=== PATIENT | female | born 1970 | race Caucasian/White ===

== ENCOUNTER → 2018-07-20 | Outpatient (CLI) | payer OTHER ==
[~2018-07-20] MED LIST: ADV250INH INH; ALLEGRA OTC PO; ALLEGRA PO; DARVOCET-N PO; GLUCOSAMINE; IBUP600T; Loperamide; PRED20TA PO; PROAIR INHALER INH; PROV90AE; VICO5TAB; [UNRECOGNIZED DRUG - OTHER]; mvi
--- NOTE | 2018-07-20 09:27 | REP ---
MR BRAIN WITHOUT CONTRAST: HISTORY: Dizziness. Scattered punctate areas of increased signal intensity on T2-weighted images are present in the subcortical white matter. This represents small vessel ischemic disease. There is no intraparenchymal hemorrhage, infarct, mass or midline shift. A 5 mm pineal cyst is present. The ventricular system is normal in appearance. There is no extracerebral collection. The sinuses are clear. IMPRESSION: Minimal small vessel ischemic disease. Electronically Signed by Raoul Amor MD 07/20/2018 09:35 A
== END ==
LOC: M RAD 08:20
PROVIDERS: ATTEND Specialist
DX: R42 Dizziness and giddiness (principal)

== ENCOUNTER 2018-10-07 02:02 | Inpatient (IN) | payer OTHER ==
[~2018-10-07] VITALS: Ht 167.6 cm; Wt 102.3 kg
[2018-10-07] MEDS ORDERED: MONT10TA2 PO ×2 (02:08→06:09)
[2018-10-07 02:48] LABS: BASO # 0.1 10^3/uL (0.0-0.2); BASO % 0.4 % (0.0-1.0); EOS # 0.3 10^3/uL (0.0-0.50); EOS % 2.1 % (0.0-3.0); HEMATOCRIT 39.1 % (36.0-47.0); HEMOGLOBIN 12.9 g/dl (12.0-15.5); LYMPH # 1.6 10^3/uL (1.5-4.5); LYMPH % 13.2 % (24.0-44.0); MEAN CORPUSCULAR HEMOGLOBIN 29.2 pg (27.0-33.0); MEAN CORPUSCULAR VOLUME 88.5 fl (80.0-96.0); MONO # 0.8 10^3/uL (0.0-0.8); MONO % 6.7 % (0.0-5.0); NEUTROPHILS # 9.4 10^3/uL (1.8-7.7); NEUTROPHILS % 77.2 % (36.0-66.0); PLATELET COUNT, AUTOMATED 325 10^3/uL (150-450); RED BLOOD COUNT 4.42 10^6/uL (4.00-5.40); WHITE BLOOD COUNT 12.2 10^3/uL (4.0-10.0)
[2018-10-07] MEDS ORDERED: ONDANSETRON 4MG/2ML VIAL (J2405) IV ONE (03:00)
[2018-10-07] MEDS ORDERED: MORPHINE 4 MG/ML 1ML VIAL/SYRINGE (J2270) IV PRN ×2 (03:00→08:30)
[2018-10-07 03:04] LABS: ALBUMIN 3.5 GM/DL (3.2-5.2); ALT/SGPT 37 U/L (12-78); BILIRUBIN,DIRECT 0.1 MG/DL (0.0-0.2); BILIRUBIN,TOTAL 0.4 MG/DL (0.2-1.0); BLOOD UREA NITROGEN 8 MG/DL (7-18); CALCIUM LEVEL 8.2 MG/DL (8.5-10.1); CARBON DIOXIDE LEVEL 28 MEQ/L (21-32); CHLORIDE LEVEL 107 MEQ/L (98-107); GLOMERULAR FILTRATION RATE > 60.0 (>58); GLUCOSE, FASTING 110 MG/DL (70-100); LIPASE 115 U/L (73-393); POTASSIUM SERUM 4.1 MEQ/L (3.5-5.1); SODIUM LEVEL 143 MEQ/L (136-145); TOTAL PROTEIN 6.8 GM/DL (6.4-8.2)
--- NOTE | 2018-10-07 05:25 | REPVR ---
EXAM: US Abdomen Limited, Right Upper Quadrant EXAM DATE/TIME: 10/07/18 (3:35am) CLINICAL HISTORY: 48 year old female with RUQ pain TECHNIQUE: Imaging protocol: Real-time ultrasound of the abdomen with image documentation. Examination was focused on the right upper quadrant. COMPARISON: No relevant prior studies available. FINDINGS: The liver is visually normal in size and texture. Non-mobile stone (1.7 cm size) at the gallbladder neck level. Sludge also present. Thickened gallbladder wall (7 mm thickness). Trace amount of pericholecystic fluid. The CBD is top normal in caliber (5.2 mm diameter). No ductal stone is seen. Dilated pancreatic duct (4.8 mm diameter). No pancreatic mass. The right kidney measures 10.5 cm in length, with no hydronephrosis appreciated. No ascites is seen. IMPRESSION: Findings compatible with acute cholecystitis. Large non-mobile stone (17 mm size) at the gallbladder neck level, and sludge. Thickened gallbladder wall. Trace pericholecystic fluid. CBD is top normal in diameter. Electronically signed by: Lucy Salmeron On 10/07/2018 05:25:39 AM
[2018-10-07] MEDS ORDERED: PIPERACILLIN/TAZOBACTAM SOD 3.375 GM in D5W MINI-BAG PLUS 50 ML IV ONE (06:00)
[2018-10-07] MEDS ORDERED: VITMTA PO (06:09)
[2018-10-07] MEDS ORDERED: IBUPOTC PO (06:09)
[2018-10-07] MEDS ORDERED: PROAAER10 INH (06:09)
[2018-10-07] MEDS: LEVALBUTEROL 1.25 MG/0.5 ML CONCENTRATE NEB INH SCH ×4 (08:00→20:00)
[2018-10-07] MEDS ORDERED: METOCLOPRAMIDE INJ 10MG/2ML VIAL (J2765) IV PRN (08:30)
[2018-10-07] MEDS ORDERED: PROMETHAZINE INJ 25 MG/ML VIAL (J2550) IV PRN (08:30)
[2018-10-07] MEDS ORDERED: ONDANSETRON 4MG/2ML VIAL (J2405) IV PRN (08:30)
[2018-10-07 09:15] VITALS: BP 157/84
[2018-10-07] MEDS: D5W/LR 1,000 ML IV SCH ×2 (09:22→18:15)
[2018-10-07] MEDS: KETOROLAC 30 MG/ML VIAL (J1885) IV SCH ×3 (09:22→20:20)
[2018-10-07 12:11] LABS: HEMATOCRIT 37.1 % (36.0-47.0); HEMOGLOBIN 12.2 g/dl (12.0-15.5); MEAN CORPUSCULAR HGB CONC 32.9 g/dl (32.0-36.5); MEAN CORPUSCULAR VOLUME 88.1 fl (80.0-96.0); PLATELET COUNT, AUTOMATED 296 10^3/uL (150-450); RED BLOOD COUNT 4.21 10^6/uL (4.00-5.40); WHITE BLOOD COUNT 10.3 10^3/uL (4.0-10.0)
[2018-10-07] MEDS: PIPERACILLIN/TAZOBACTAM SOD 3.375 GM in D5W MINI-BAG PLUS 50 ML IV SCH ×2 (12:15→18:15)
[2018-10-07 12:34] LABS: ALBUMIN 3.1 GM/DL (3.2-5.2); ALT/SGPT 85 U/L (12-78); BILIRUBIN,TOTAL 0.5 MG/DL (0.2-1.0); BLOOD UREA NITROGEN 7 MG/DL (7-18); CALCIUM LEVEL 8.3 MG/DL (8.5-10.1); CARBON DIOXIDE LEVEL 29 MEQ/L (21-32); CHLORIDE LEVEL 105 MEQ/L (98-107); CREATININE FOR GFR 0.66 MG/DL (0.55-1.30); GLOMERULAR FILTRATION RATE > 60.0 (>58); GLUCOSE, FASTING 117 MG/DL (70-100); POTASSIUM SERUM 3.7 MEQ/L (3.5-5.1); SODIUM LEVEL 140 MEQ/L (136-145); TOTAL PROTEIN 6.9 GM/DL (6.4-8.2)
[2018-10-07] MEDS ORDERED: cefTRIAXone SOD 1 GM in D5W MINI-BAG PLUS 50 ML IV SCH (13:15)
[2018-10-07 14:00] VITALS: BP 134/81
[2018-10-07] MEDS: NORCO, ANEXSIA 5/325MG TABLET (HYDROcodone/ACETAMINOPHEN) PO PRN ×2 (14:17→20:20)
[2018-10-07] MEDS: MONTELUKAST 10 MG TAB PO SCH (20:20)
--- NOTE | 2018-10-07 21:15 | HPE ---
DATE OF ADMISSION: 10/07/2018 BRIEF HISTORY OF PRESENT ILLNESS: The patient is a 48-year-old female who 3 days ago had a fatty meal, developed right upper quadrant pain, has had persistent pain since that time, presents to the emergency room with this ongoing persistent right upper quadrant pain. White count is elevated at 12.12. Underwent an ultrasound that showed a evidence of cholecystitis with pericholecystic inflammation and a thickened gallbladder wall. The patient has not had any previous episodes of cholecystitis in the past, has not had any evidence of acholic stools. No bilirubinuria. No evidence of biliary ductal dilatation. No evidence of liver function test abnormalities. The patient has not had any fevers or chills. PAST MEDICAL HISTORY: Significant for a history of asthma, history of hysterectomy. MEDICATIONS: Include the following: Albuterol, ibuprofen, multivitamin and montelukast. PHYSICAL EXAM: Reveals a 48-year-old female who looks stated age. HEENT is unremarkable. Neck: Supple without adenopathy. Lungs are clear to auscultation without crackles, wheezes or rhonchi. Heart is regular without murmur. Abdomen is soft, nondistended, but she has tenderness, guarding in the right upper quadrant without rebound, without referred rebound. Extremities: Warm, well perfused. No evidence hernias or masses are appreciated. IMPRESSION AND PLAN: The patient has evidence of cholecystitis, make her nothing by mouth, IV fluids, IV antibiotics. Will see how she does over the next 24 hours and depending on her progress, may advance her diet or proceed with operative intervention. However, given that it has been more than 24-48 hours, she is now in much more of an inflammatory stage of infection, which will increase her risk of perioperative bleeding and complications. We will see how she does and determine our next course of action depending on her temperature, her white count and her overall clinical course.
[2018-10-07 22:00] VITALS: BP 135/83
[2018-10-08] MEDS: PIPERACILLIN/TAZOBACTAM SOD 3.375 GM in D5W MINI-BAG PLUS 50 ML IV SCH ×5 (00:35→23:22)
[2018-10-08 02:00] VITALS: BP 130/89
[2018-10-08] MEDS: KETOROLAC 30 MG/ML VIAL (J1885) IV SCH ×4 (02:02→21:14)
[2018-10-08 06:00] VITALS: BP 123/74
[2018-10-08] MEDS: D5W/LR 1,000 ML IV SCH ×4 (06:02→23:22)
[2018-10-08] MEDS: LEVALBUTEROL 1.25 MG/0.5 ML CONCENTRATE NEB INH SCH ×4 (07:46→20:00)
[2018-10-08 09:18] LABS: HEMOGLOBIN 11.3 g/dl (12.0-15.5); MEAN CORPUSCULAR HEMOGLOBIN 28.8 pg (27.0-33.0); MEAN CORPUSCULAR HGB CONC 33.2 g/dl (32.0-36.5); MEAN CORPUSCULAR VOLUME 86.7 fl (80.0-96.0); PLATELET COUNT, AUTOMATED 266 10^3/uL (150-450); RED BLOOD COUNT 3.92 10^6/uL (4.00-5.40); WHITE BLOOD COUNT 8.2 10^3/uL (4.0-10.0)
[2018-10-08 09:46] LABS: ALBUMIN 2.8 GM/DL (3.2-5.2); ALT/SGPT 67 U/L (12-78); BILIRUBIN,TOTAL 0.5 MG/DL (0.2-1.0); BLOOD UREA NITROGEN 9 MG/DL (7-18); CALCIUM LEVEL 7.6 MG/DL (8.5-10.1); CARBON DIOXIDE LEVEL 29 MEQ/L (21-32); CHLORIDE LEVEL 107 MEQ/L (98-107); CREATININE FOR GFR 0.62 MG/DL (0.55-1.30); GLOMERULAR FILTRATION RATE > 60.0 (>58); GLUCOSE, FASTING 109 MG/DL (70-100); POTASSIUM SERUM 3.5 MEQ/L (3.5-5.1); SODIUM LEVEL 142 MEQ/L (136-145); TOTAL PROTEIN 5.9 GM/DL (6.4-8.2)
[2018-10-08 10:00] VITALS: BP 125/81
--- NOTE | 2018-10-08 10:12 | IPN ---
DATE OF SERVICE: 10/08/2018 CHIEF COMPLAINT: The patient has right upper quadrant pain associated with cholecystitis, however, she states that her pain is better than it was yesterday and she obviously looks much more comfortable than she did yesterday. Her temperature has come down to normal this morning and her white count is normal as well. She is not having any nausea or vomiting. No diarrhea or constipation issues. No blood per rectum. No acholic stools. No bilirubinuria. Still complains of some discomfort and pain in the right upper quadrant. On her physical exam, she still has some tenderness in the right upper quadrant, but it is much less than it was yesterday. It was significantly tender yesterday, now it is more so to deep palpation. No guarding or rebound is appreciated elsewhere and otherwise a benign exam. IMPRESSION AND PLAN: The patient has evidence of improvement of her cholecystitis. I do feel that we can continue her on the antibiotics and starting her on a clear liquid diet is reasonable today and then will see how she is doing tomorrow, but possibly progressing her to a low-fat diet tomorrow and discharging on by mouth antibiotics with plans for an outpatient laparoscopic cholecystectomy in the next few weeks.
[2018-10-08 14:00] VITALS: BP 131/80
[2018-10-08 18:00] VITALS: BP 134/81
[2018-10-08] MEDS: MONTELUKAST 10 MG TAB PO SCH (21:14)
[2018-10-08 22:00] VITALS: BP 147/99
[2018-10-08] MEDS: NORCO, ANEXSIA 5/325MG TABLET (HYDROcodone/ACETAMINOPHEN) PO PRN (23:22)
[2018-10-09 02:00] VITALS: BP 132/87
[2018-10-09] MEDS: KETOROLAC 30 MG/ML VIAL (J1885) IV SCH ×2 (03:25→08:37)
[2018-10-09] MEDS: PIPERACILLIN/TAZOBACTAM SOD 3.375 GM in D5W MINI-BAG PLUS 50 ML IV SCH (05:48)
[2018-10-09 06:00] VITALS: BP 144/83
[2018-10-09] MEDS: LEVALBUTEROL 1.25 MG/0.5 ML CONCENTRATE NEB INH SCH (07:43)
[2018-10-09] MEDS ORDERED: AUGM875T28 PO (08:28)
--- NOTE | 2018-10-11 21:38 | DSES ---
DATE OF ADMISSION: 10/08/2018 DATE OF DISCHARGE: 10/09/2018 PRINCIPAL DIAGNOSIS: Acute cholecystitis. ASSOCIATED DIAGNOSES: History of asthma. History of arthritis. MEDICATIONS AT THE TIME OF DISCHARGE: Include Augmentin, albuterol, ibuprofen, montelukast, sodium, multivitamins. BRIEF HISTORY OF PRESENT ILLNESS: The patient is a 48-year-old female who presents with a 3-day history of right upper quadrant pain radiating to her back. Overall the pain was persistent and severe after eating a fatty meal. She has been actually on a low-fat diet until this fatty meal and developed severe right upper quadrant pain that awoke her from sleep. She developed nausea without vomiting but had persistence of this abdominal pain with right upper quadrant pain and pain and tenderness with a thickened gallbladder wall on gallbladder ultrasound and white count. HOSPITAL COURSE SUMMARY: The patient was admitted with the above diagnosis, was placed on antibiotics and had some minimal improvement over the first 24 hours, started on a clear liquid diet, and she had continued improvement over the next 24 hours, was started on a low-fat diet and was discharged home with plans for followup in a week or two for plans for outpatient laparoscopic cholecystectomy. The patient was instructed to follow up in my office for reevaluation but to stay on a low-fat diet until that time, to contact our office if she has increasing pain, discomfort, fevers, chills, nausea, vomiting or any other complaints at this time.
== END 2018-10-09 10:30 | disposition home or self-care (01) | DRG 446 ==
LOC: M ED 02:02 → M ED INP 08:20 → M MS5PR 09:11 → OBSVTOIN 10-08 09:59
PROVIDERS: ADMIT Surgery; ATTEND Surgery
DX: K81.0 Acute cholecystitis (principal); J45.909 Unspecified asthma, uncomplicated

== ENCOUNTER 2018-11-16 08:24 | Day surgery (SDC) | payer OTHER ==
[~2018-11-16] VITALS: Ht 167.6 cm; Wt 103.4 kg
[~2018-11-16 08:24] MED LIST changes: +AUGM875T28 PO; +IBUPOTC PO; +LR 1,000 ML IV ONE; +MONT10TA2 PO; +PROAAER10 INH; +VITMTA PO; +ceFAZolin SOD 1 GM in D5W MINI-BAG PLUS 50 ML IV ONE
[2018-11-16] MEDS ORDERED: dexameTHASONE 4 MG/ML 1ML VIAL (J1100) As Ordered ONE (08:33)
[2018-11-16] MEDS ORDERED: ONDANSETRON 4MG/2ML VIAL (J2405) As Ordered ONE (08:33)
[2018-11-16] MEDS ORDERED: ROCURONIUM BROMIDE 50 MG/5 ML VIAL As Ordered ONE (08:33)
[2018-11-16] MEDS ORDERED: LIDOCAINE 2% INJ 100 MG/5 ML SDV (FOR ANES.) As Ordered ONE (08:33)
[2018-11-16] MEDS ORDERED: KETOROLAC 60 MG/2 ML VIAL (J1885) As Ordered ONE (08:33)
[2018-11-16] MEDS ORDERED: PROPOFOL 200 MG/20 ML VIAL As Ordered ONE ×2 (08:33→10:58)
[2018-11-16] MEDS ORDERED: fentaNYL 100 MCG/2 ML INJECTION (J3010) As Ordered ONE ×2 (08:34→15:31)
[2018-11-16] MEDS ORDERED: MIDAZOLAM INJ 2 MG/2 ML VIAL (J2250) As Ordered ONE (08:34)
[2018-11-16] MEDS ORDERED: BUPIVACAINE/EPIN 0.25% 30 ML VIAL As Ordered ONE (10:53)
[2018-11-16] MEDS ORDERED: SUGAMMADEX SODIUM 500 MG/5 ML VIAL (BRIDION) As Ordered ONE (11:35)
[2018-11-16] MEDS ORDERED: ACETAMINOPHEN 1000MG 100ML IV BTL (OFIRMEV) (J0131 PER 10MG) As Ordered ONE (12:26)
[2018-11-16] MEDS ORDERED: LR 1,000 ML IV SCH ×2 (13:15→13:45)
[2018-11-16] MEDS ORDERED: ONDANSETRON 4MG/2ML VIAL (J2405) IV PRN ×2 (13:15→13:45)
[2018-11-16] MEDS ORDERED: MORPHINE 4 MG/ML 1ML VIAL/SYRINGE (J2270) IV PRN (13:15)
[2018-11-16] MEDS ORDERED: NORCO, ANEXSIA 5/325MG TABLET (HYDROcodone/ACETAMINOPHEN) PO PRN (13:15)
[2018-11-16] MEDS ORDERED: fentaNYL 100 MCG/2 ML INJECTION (J3010) IV PRN (13:45)
[2018-11-16] MEDS ORDERED: PERCOCET 5MG/325MG TAB PO PRN (13:45)
[2018-11-16 15:30] VITALS: BP 150/82
[2018-11-16] MEDS ORDERED: KETOROLAC 30 MG/ML VIAL (J1885) IV SCH (19:00)
--- NOTE | 2018-11-17 00:14 | ECGEPIP ---
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 THERE WAS BETTER R-WAVE PROGRESSION Electronically Signed On 11-17-2018 0:14:11 EDT by Neel Shirley
== END 2018-11-16 15:45 | disposition home or self-care (01) ==
LOC: M SDC 08:24
PROVIDERS: ATTEND Surgery
DX: K80.18 Calculus of gallbladder with other cholecystitis without obstruction (principal); J45.909 Unspecified asthma, uncomplicated; Z79.51 Long term (current) use of inhaled steroids; Z79.899 Other long term (current) drug therapy
CPT/HCPCS: 47562; 88304; 93005; J0131; J0690; J1100; J1885; J2250; J2405; J3010

== ENCOUNTER 2019-07-28 07:10 | Day surgery (SDC) | payer OTHER ==
[~2019-07-28] VITALS: Ht 167.6 cm; Wt 104.3 kg
[~2019-07-28 07:10] MED LIST changes: -LR 1,000 ML IV ONE; +NS 1,000 ML IV ONE; -ceFAZolin SOD 1 GM in D5W MINI-BAG PLUS 50 ML IV ONE
[2019-07-28] MEDS ORDERED: LIDOCAINE 2% INJ 100 MG/5 ML SDV (FOR ANES.) As Ordered ONE (08:04)
[2019-07-28] MEDS ORDERED: propofoL 200 MG/20 ML VIAL As Ordered ONE ×2 (08:04→08:29)
--- NOTE | 2019-07-28 08:39 | ROOR ---
Patient Name: Tati Dietrich Procedure Date: 07/28/2019 8:10 AM Date of : 1970 Age: 49 Room: [facility] Gender: Female Note Status: Finalized Procedure: Colonoscopy Indications: Screening for colorectal malignant neoplasm Providers: Jayden Cunningham Jr, MD Referring MD: Tracy THAPA DO Requesting Provider: Medicines: Propofol per Anesthesia Complications: No immediate complications. Procedure: Pre-Anesthesia Assessment: - Prior to the procedure, a History and Physical was performed, and patient medications and allergies were reviewed. The patient is competent. The risks and benefits of the procedure and the sedation options and risks were discussed with the patient. All questions were answered and informed consent was obtained. Patient identification and proposed procedure were verified by the physician and the nurse in the pre-procedure area and in the procedure room. Mental Status Examination: alert and oriented. Airway Examination: normal oropharyngeal airway and neck mobility. Respiratory Examination: clear to auscultation. CV Examination: normal. ASA Grade Assessment: II - A patient with mild systemic disease. After reviewing the risks and benefits, the patient was deemed in satisfactory condition to undergo the procedure. The anesthesia plan was to use moderate sedation / analgesia (conscious sedation). Immediately prior to administration of medications, the patient was re-assessed for adequacy to receive sedatives. The heart rate, respiratory rate, oxygen saturations, blood pressure, adequacy of pulmonary ventilation, and response to care were monitored throughout the procedure. The physical status of the patient was re-assessed after the procedure. The Colonoscope was introduced through the anus and advanced to the cecum, identified by appendiceal orifice and ileocecal valve. The colonoscopy was performed without difficulty. The patient tolerated the procedure well. The quality of the bowel preparation was adequate. Findings: The rectum, recto-sigmoid colon, descending colon, transverse colon, ascending colon, cecum, appendiceal orifice and ileocecal valve appeared normal. Multiple small and large-mouthed diverticula were found in the sigmoid colon. Impression: - The rectum, recto-sigmoid colon, descending colon, transverse colon, ascending colon, cecum, appendiceal orifice and ileocecal valve are normal. - Diverticulosis in the sigmoid colon. - No specimens collected. Recommendation: - Discharge patient to home (ambulatory). - Repeat colonoscopy in 10 years for screening purposes. Jayden Cunningham MD Jayden Cunningham Jr, MD 07/28/2019 8:39:21 AM Electronically signed by Jayden Cunningham Jr, MD Number of Addenda: 0 Note Initiated On: 07/28/2019 8:10 AM Estimated Blood Loss: Estimated blood loss: none.
[2019-07-28 08:55] VITALS: BP 128/77
== END 2019-07-28 09:01 | disposition home or self-care (01) ==
LOC: M OPP 07:10
PROVIDERS: ATTEND Surgery
DX: Z12.11 Encounter for screening for malignant neoplasm of colon (principal); K57.30 Diverticulosis of large intestine without perforation or abscess without bleeding; J45.909 Unspecified asthma, uncomplicated; Z91.010 Allergy to peanuts

== ENCOUNTER → 2020-05-15 | Outpatient (CLI) | payer OTHER ==
[~2020-05-15] MED LIST changes: -MONT10TA2 PO; +MONT10TA4 PO; -NS 1,000 ML IV ONE
[2020-05-15 12:54] LABS: BASO % 0.6 % (0.0-1.0); EOS # 0.1 10^3/uL (0.0-0.5); EOS % 1.4 % (0.0-3.0); HEMOGLOBIN 13.2 g/dl (12.0-15.5); LYMPH # 1.7 10^3/uL (1.5-5.0); LYMPH % 26.3 % (24.0-44.0); MEAN CORPUSCULAR HEMOGLOBIN 28.6 pg (27.0-33.0); MEAN CORPUSCULAR HGB CONC 32.2 g/dl (32.0-36.5); MEAN CORPUSCULAR VOLUME 88.7 fl (80.0-96.0); MONO # 0.6 10^3/uL (0.0-0.8); MONO % 8.7 % (0.0-5.0); NEUTROPHILS % 62.5 % (36.0-66.0); PLATELET COUNT, AUTOMATED 343 10^3/uL (150-450); RED BLOOD COUNT 4.62 10^6/uL (4.00-5.40); WHITE BLOOD COUNT 6.4 10^3/uL (4.0-10.0)
[2020-05-15 13:29] LABS: ALBUMIN 3.8 GM/DL (3.2-5.2); ALT/SGPT 35 U/L (12-78); BILIRUBIN,TOTAL 0.4 MG/DL (0.2-1.0); BLOOD UREA NITROGEN 14 MG/DL (7-18); CALCIUM LEVEL 9.1 MG/DL (8.5-10.1); CARBON DIOXIDE LEVEL 29 MEQ/L (21-32); CHLORIDE LEVEL 104 MEQ/L (98-107); CHOLESTEROL LEVEL 220 MG/DL (<200); CHOLESTEROL RISK RATIO 4.888 (<5); CREATININE FOR GFR 0.64 MG/DL (0.55-1.30); FREE T4 1.14 NG/DL (0.76-1.46); GLOMERULAR FILTRATION RATE > 60.0 (>51); GLUCOSE, FASTING 94 MG/DL (70-100); HDL CHOLESTEROL 45 MG/DL (>40); LDL CHOLESTEROL 132 MG/DL (<100); NON-HDL-C 175 MG/DL; POTASSIUM SERUM 4.8 MEQ/L (3.5-5.1); SODIUM LEVEL 138 MEQ/L (136-145); TOTAL PROTEIN 7.2 GM/DL (6.4-8.2); TRIGLYCERIDES LEVEL 214 MG/DL (<150)
--- NOTE | 2020-05-15 14:30 | REP ---
INDICATION: PAIN IN RIGHT FOOT. COMPARISON: Comparison right ankle radiographs are from August 17, 2012.. TECHNIQUE: Four views. FINDINGS: Four views of the right ankle demonstrate intact ankle mortise. There are small accessory ossicles adjacent to the medial malleolus. These visible in retrospect on the prior study. No fracture or subluxation is seen. No erosive changes observed. IMPRESSION: No acute bony abnormality. <Electronically signed by Brett Oliver > 05/15/20 [id number]
--- NOTE | 2020-05-15 14:31 | REP ---
INDICATION: PAIN IN RIGHT FOOT. COMPARISON: None. TECHNIQUE: Four views. FINDINGS: Four views of the right foot demonstrate overall normal mineralization. There is an os naviculare E.. No fracture or subluxation is seen. No opaque foreign body noted. Joint spaces are preserved. IMPRESSION: Negative right foot series. <Electronically signed by Brett Oliver > 05/15/20 [id number]
== END ==
LOC: M ADAMS 08:30
PROVIDERS: ATTEND Family Medicine
DX: M79.671 Pain in right foot (principal); Z13.29 Encounter for screening for other suspected endocrine disorder; Z13.220 Encounter for screening for lipoid disorders; Z13.0 Encounter for screening for diseases of the blood and blood-forming organs and certain disorders involving the immune mechanism

== ENCOUNTER → 2022-05-15 | Outpatient (CLI) | payer OTHER ==
[~2022-05-15] MED LIST changes: -MONT10TA4 PO; +MONT10TA97 PO
[2022-05-15 12:16] LABS: BASO % 0.6 % (0.0-1.0); EOS # 0.1 10^3/uL (0.0-0.5); EOS % 1.3 % (0.0-3.0); HEMATOCRIT 40.2 % (36.0-47.0); LYMPH # 1.9 10^3/uL (1.5-5.0); LYMPH % 26.3 % (24.0-44.0); MEAN CORPUSCULAR HEMOGLOBIN 28.8 pg (27.0-33.0); MEAN CORPUSCULAR HGB CONC 32.3 g/dl (32.0-36.5); MEAN CORPUSCULAR VOLUME 88.9 fl (80.0-96.0); MONO # 0.5 10^3/uL (0.0-0.8); MONO % 6.7 % (2.0-8.0); NEUTROPHILS # 4.7 10^3/uL (1.5-8.5); NEUTROPHILS % 64.7 % (36.0-66.0); PLATELET COUNT, AUTOMATED 348 10^3/uL (150-450); RED BLOOD COUNT 4.52 10^6/uL (4.00-5.40); WHITE BLOOD COUNT 7.2 10^3/uL (4.0-10.0)
[2022-05-15 13:28] LABS: ALT/SGPT 40 U/L (12-78); BILIRUBIN,TOTAL 0.3 MG/DL (0.2-1.0); BLOOD UREA NITROGEN 11 MG/DL (7-18); CALCIUM LEVEL 9.5 MG/DL (8.5-10.1); CARBON DIOXIDE LEVEL 30 MEQ/L (21-32); CHLORIDE LEVEL 105 MEQ/L (98-107); CHOLESTEROL LEVEL 219 MG/DL (<200); CHOLESTEROL RISK RATIO 4.469 (<5); CREATININE FOR GFR 0.71 MG/DL (0.55-1.30); GLOMERULAR FILTRATION RATE > 60.0 (>51); GLUCOSE, FASTING 99 MG/DL (70-100); HDL CHOLESTEROL 49 MG/DL (>40); LDL CHOLESTEROL 122 MG/DL (<100); NON-HDL-C 170 MG/DL; POTASSIUM SERUM 3.8 MEQ/L (3.5-5.1); SODIUM LEVEL 140 MEQ/L (136-145); THYROID STIMULATING HORMONE 0.957 uIU/ML (0.358-3.740); TOTAL PROTEIN 7.7 GM/DL (6.4-8.2); TRIGLYCERIDES LEVEL 240 MG/DL (<150)
== END ==
LOC: M RAD 11:04
PROVIDERS: ATTEND Family Medicine
DX: R22.41 Localized swelling, mass and lump, right lower limb (principal)

== ENCOUNTER → 2022-05-21 | Outpatient (REF) | payer OTHER | LOC: M LAB REF 17:55 | PROVIDERS: ATTEND Nurse Practitioner Adult Health | DX: Z20.828 Contact with and (suspected) exposure to other viral communicable diseases (principal) ==

== ENCOUNTER → 2022-06-10 | Outpatient (CLI) | payer OTHER ==
[2022-06-10 15:43] LABS: CORTISOL PM 11.6 UG/DL (3.1-16.7)
[2022-06-10 15:47] LABS: FOLLICLE STIMULATING HORMONE 56.6 mIU/ML; PROGESTERONE 0.56 NG/ML
[2022-06-10 15:48] LABS: LUTEINIZING HORMONE 31.9 mIU/ML
== END ==
LOC: M LAB 13:53
PROVIDERS: ATTEND Obstetrics & Gynecology
DX: N95.1 Menopausal and female climacteric states (principal)

== ENCOUNTER → 2022-08-28 | Outpatient (CLI) | payer OTHER | LOC: M WHC 07:03 | PROVIDERS: ATTEND Family Medicine | DX: Z12.31 Encounter for screening mammogram for malignant neoplasm of breast (principal) ==

== ENCOUNTER → 2023-09-01 | Outpatient (CLI) | payer OTHER | LOC: M WHC 14:39 | PROVIDERS: ATTEND Family Medicine | DX: Z12.31 Encounter for screening mammogram for malignant neoplasm of breast (principal) ==

== ENCOUNTER → 2024-07-21 | Outpatient (REF) | payer OTHER ==
[2024-07-21 14:22] LABS: BASO # 0.1 10^3/uL (0.0-0.2); BASO % 0.8 % (0.0-1.0); EOS # 0.1 10^3/uL (0.0-0.5); EOS % 1.2 % (0.0-3.0); HEMATOCRIT 42.5 % (36.0-47.0); HEMOGLOBIN 13.8 g/dl (12.0-15.5); LYMPH # 1.6 10^3/uL (1.5-5.0); LYMPH % 27.3 % (24.0-44.0); MEAN CORPUSCULAR HEMOGLOBIN 28.3 pg (27.0-33.0); MEAN CORPUSCULAR HGB CONC 32.5 g/dl (32.0-36.5); MEAN CORPUSCULAR VOLUME 87.3 fl (80.0-96.0); MONO # 0.5 10^3/uL (0.0-0.8); MONO % 8.7 % (2.0-8.0); NEUTROPHILS # 3.7 10^3/uL (1.5-8.5); NEUTROPHILS % 61.7 % (36.0-66.0); PLATELET COUNT, AUTOMATED 342 10^3/uL (150-450); RED BLOOD COUNT 4.87 10^6/uL (4.00-5.40)
[2024-07-21 14:48] LABS: FREE T4 1.36 NG/DL (0.89-1.76); THYROID STIMULATING HORMONE 1.418 uIU/ML (0.55-4.78)
[2024-07-21 14:50] LABS: ALKALINE PHOSPHATASE 111 U/L (35-104); ALT/SGPT 60 U/L (7.0-40); AST/SGOT 36 U/L (<34); BILIRUBIN,TOTAL 0.5 MG/DL (0.3-1.2); BLOOD UREA NITROGEN 11 MG/DL (9-23); CALCIUM LEVEL 9.6 MG/DL (8.5-10.1); CARBON DIOXIDE LEVEL 31 MMOL/L (20-31); CHLORIDE LEVEL 105 MMOL/L (98-107); CHOLESTEROL LEVEL 226 MG/DL (<200); CHOLESTEROL RISK RATIO 5.15 (<5); CREATININE FOR GFR 0.69 MG/DL (0.55-1.30); GLOMERULAR FILTRATION RATE > 60.0 (>51); GLUCOSE, FASTING 108 MG/DL (60-100); HDL CHOLESTEROL 43.8 MG/DL (>40); LDL CHOLESTEROL 146.2 MG/DL (<100); NON-HDL-C 182.2 MG/DL; SODIUM LEVEL 140 MMOL/L (136-145); TOTAL PROTEIN 7.3 G/DL (5.7-8.2); TRIGLYCERIDES LEVEL 180 MG/DL (<150)
== END ==
LOC: M LABDRWAD 13:47
PROVIDERS: ATTEND Family Medicine
DX: E78.00 Pure hypercholesterolemia, unspecified (principal); Z13.29 Encounter for screening for other suspected endocrine disorder; Z13.0 Encounter for screening for diseases of the blood and blood-forming organs and certain disorders involving the immune mechanism

== ENCOUNTER → 2025-06-02 | Outpatient (CLI) | payer OTHER ==
[2025-06-02 15:46] LABS: ALT/SGPT 37 U/L (7.0-40); AST/SGOT 33 U/L (<34); CALCIUM LEVEL 9.0 MG/DL (8.5-10.1); CARBON DIOXIDE LEVEL 30 MMOL/L (20-31); CHLORIDE LEVEL 103 MMOL/L (98-107); CHOLESTEROL LEVEL 222 MG/DL (<200); CHOLESTEROL RISK RATIO 5.11 (<5); CREATININE FOR GFR 0.75 MG/DL (0.55-1.30); GLOMERULAR FILTRATION RATE > 90.0 (>51); LDL CHOLESTEROL 133.4 MG/DL (<100); NON-HDL-C 178.6 MG/DL; POTASSIUM SERUM 4.6 MMOL/L (3.5-5.1); SODIUM LEVEL 140 MMOL/L (136-145); TRIGLYCERIDES LEVEL 226 MG/DL (<150)
[2025-06-02 15:48] LABS: FREE T4 1.28 NG/DL (0.89-1.76)
[2025-06-02 16:08] LABS: ESTIMATED AVERAGE GLUCOSE 117.0 MG/DL (60-110)
[2025-06-02 16:15] LABS: BASO # 0.0 10^3/uL (0.0-0.2); BASO % 0.6 % (0.0-1.0); EOS # 0.2 10^3/uL (0.0-0.5); EOS % 2.5 % (0.0-3.0); LYMPH # 2.5 10^3/uL (1.5-5.0); LYMPH % 35.0 % (24.0-44.0); MONO # 0.7 10^3/uL (0.0-0.8); MONO % 9.6 % (2.0-8.0); NEUTROPHILS # 3.7 10^3/uL (1.5-8.5); NEUTROPHILS % 52.0 % (36.0-66.0); PLATELET COUNT, AUTOMATED 412 10^3/uL (150-450)
== END ==
LOC: M LABDRWAD 07:42
PROVIDERS: ATTEND Family Medicine
DX: E78.00 Pure hypercholesterolemia, unspecified (principal); Z13.0 Encounter for screening for diseases of the blood and blood-forming organs and certain disorders involving the immune mechanism; Z13.29 Encounter for screening for other suspected endocrine disorder